=== PATIENT | male | born 1995 | race Caucasian/White ===

== ENCOUNTER → 2021-06-12 13:08 | Outpatient (BNVA) | payer OTHER, BC, SELFPAY | PROVIDERS: Referring Provider Family Medicine; Visit Provider Specialist | DX: G56.02 Carpal tunnel syndrome, left upper limb (principal) | CPT/HCPCS: 73110 ==

== ENCOUNTER → 2021-06-19 09:33 | Outpatient (BNVA) | payer OTHER, BC, SELFPAY | PROVIDERS: Visit Provider Specialist | DX: Z01.818 Encounter for other preprocedural examination (principal); Z20.822 Contact with and (suspected) exposure to COVID-19 | CPT/HCPCS: 87635 ==

== ENCOUNTER → 2021-06-23 15:28 | Outpatient (BNVA) | payer OTHER, BC, SELFPAY | PROVIDERS: Visit Provider Specialist | DX: Z01.812 Encounter for preprocedural laboratory examination (principal); Z20.822 Contact with and (suspected) exposure to COVID-19 | CPT/HCPCS: 87635 ==

== ENCOUNTER 2021-06-27 05:46 | Day surgery (SDC) | payer OTHER, BC, SELFPAY ==
[2021-06-26 12:13] VITALS: BMI 32.1
[2021-06-27 06:03] VITALS: BP 142/80; PULSE 61; RESP 17; TEMP 36.3; O2SAT 97
[2021-06-27] MEDS: CELEcoxib 200 mg Capsule 400 MG PO (06:26)
[2021-06-27] MEDS: sodium chloride 0.9% 1,000 ML 30 ML IV (06:26)
[2021-06-27] MEDS: acetaminophen 1,000 MG/100 ML PIGGYBACK 400 MG IV (06:26)
--- NOTE | 2021-06-27 06:34 | ANES.PREANE2 ---
Pre-Anesthetic Assessment Pre-Anesthetic Assessment: Height/Weight: Height 1.8 m Weight 104.326 kg Temp Pulse Resp BP Pulse Ox 97.3 F L 61 17 142/80 97 06/27/21 06:03 06/27/21 06:03 06/27/21 06:03 06/27/21 06:03 06/27/21 06:03 Preop Diagnosis: Left carpal tunnel syndrome Proposed Procedure: Operation Date: 06/27/21 07:10 Proposed Procedures p Carpal Tunnel Release 28913 G56.00(Left) - Halina Ngo MD Familial anesthetic complications: None (no personal history of anesthesia) Was Beta Zoran taken within 24 hours: N/A Was Clonidine taken within 24 hours: N/A Last intake: Intake Last Liquid Date 06/26/21 Last Liquid Time 23:30 Last Solid Date 06/26/21 Last Solid Time 18:00 Social: Social History: No alcohol and No tobacco Exam: Pre-Anes Outpt Exam: alert, oriented x 3, clear to auscultation bilaterally and regular rate & rhythm Airway: Cervical ROM: WNL MP: 3 Dentition: Full Anesthetic Plan: ASA status: 1 Anesthesia: MAC and Regional (specify below) (Kan block) Risk of > 500 ml blood loss (7ml/kg in children): No Meds/Allergies Current Medications: Current Medications Generic Name Dose Route Start Last Admin Trade Name Freq PRN Reason Stop Dose Admin Sodium Chloride 1,000 mls @ 30 ml s/hr 06/27/21 06:00 06/27/21 06:26 Sodium Chloride 0.9% IV 06/28/21 05:59 30 mls/hr .Q24H SARATH Administration PFSH Anesthesia PFSH: Social History Smoking and tobacco status: never smoked Data Anesthesia Cardiac Studies: No Data to Display
--- NOTE | 2021-06-27 06:56 | P.HPUD_ITS ---
Surgery/Procedure H&P Update DATE OF PROCEDURE: June 27, 2021 DATE H&P PERFORMED: 06/12/21 H&P UPDATE INFORMATION: I have reviewed H&P completed within last 30 days, I have examined patient prior to procedure, No changes to prior documentation and H&P is in [facility] – [place] EMR on date indicated PREOP DIAGNOSIS: Left carpal tunnel syndrome PLANNED PROCEDURE: Operation Date: 06/27/21 07:10 Proposed Procedures p Carpal Tunnel Release 27246 G56.00(Left) - Halina Ngo MD Related Problem List Diagnoses (1) Severe carpal tunnel syndrome of left wrist:
[2021-06-27 08:11] VITALS: BP 117/65; PULSE 60; RESP 17; TEMP 36.4; O2SAT 95
[2021-06-27 08:15] VITALS: BP 114/73; PULSE 58; RESP 20; O2SAT 95
--- NOTE | 2021-06-27 08:21 | PM.OP ---
Operative Report Date of procedure: June 27, 2021 Pre-op Diagnosis: Left carpal tunnel syndrome Post-op diagnosis: same Post-op Findings: Severe compression across the carpal canal Procedure Done: Left carpal tunnel release Implants: None Pathology: none sent Surgeon: Halina Ngo Impress Associate: None Anesthesia: MAC (With Kan block) Estimated blood loss (mL): 2 Tourniquet time (min): 41 Tourniquet time: At 250 mmHg IV fluids (mL): 200 Urine output (mL): 0 Urine output: No Rai Complications: None Findings: Compression across the carpal canal Condition: stable Disposition: PACU (Then discharged to home) Brief History: This 25-year-old gentleman presented after evaluation and discussion, he wished to proceed with carpal tunnel release. Risks and complications were discussed with the patient. He was consented for the surgical procedure. Consents were signed. Procedure: The patient was brought to the operating theater. The patient had a Kan block with MAC. The tourniquet was elevated to 250 mmHg for a total tourniquet time of 41 minutes. The patient was also given Ancef 2 g preoperatively. The arm was then prepped and draped with DuraPrep in usual fashion with the arm draped free. A surgical pause was performed. At the time, the surgical pause, we confirmed the site and side of surgery. We also confirmed the patient's identity, appropriate and timely administration of preoperative antibiotics and preoperative surgical markings. An incision was then made along the thenar crease. The incision crossed the wrist joint in a curvilinear fashion. Dissection continued through skin and soft tissues using a scalpel. The palmaris longus was identified along with the transverse carpal ligament. Each of these was released carefully to avoid injury to the median nerve. We were able to dissect gently into the carpal canal which was noted to be quite tight with significant compression across the median nerve. The canal was subsequently palpated to assure there was no bony encroachment upon the canal. There was a quite thickened fibrous tissue within the canal, and this was opened longitudinally as well. The canal was then palpated distally and proximally to assure that my small finger was passed easily without impingement. Finding this to be so, attention was directed to closure. The wound was irrigated with ropivacaine plain. It was then closed with 3-0 nylon in an interrupted mattress fashion. Sterile dressing was then placed consisting of Dermabond, Steri-Strips, OpSite, fluffed fluffs, sterile soft roll, a volar splint, and an [place] wrap. The tourniquet was released after 41 minutes. There were no complications. There were no specimens. The procedure was well tolerated. Plan is the patient will be discharged home. Associated Problem List Diagnoses (1) Carpal tunnel syndrome, left:
[2021-06-27 08:26] VITALS: BP 118/79; PULSE 71; RESP 18; TEMP 36.4; O2SAT 97
[2021-06-27 08:45] VITALS: BP 125/81; PULSE 68; RESP 18; TEMP 36.4; O2SAT 98
== END 2021-06-27 08:50 | disposition home or self-care (01) ==
PROVIDERS: PCP Internal Medicine Cardiovascular Disease; Visit Provider Specialist
PROC: (CPT 64721; principal; 2021-06-27 07:00)
DX: G56.02 Carpal tunnel syndrome, left upper limb (principal)
CPT/HCPCS: 64721; J0690; J2250; J3010; J3490; J7030

== ENCOUNTER 2021-07-10 10:15 | Outpatient (CLI) | payer OTHER, BC, SELFPAY | END 2021-07-10 10:16 | disposition home or self-care (01) | LOC: SPT 10:16 | PROVIDERS: PCP Internal Medicine Cardiovascular Disease; Visit Provider Specialist | DX: Z46.89 Encounter for fitting and adjustment of other specified devices (principal); G56.02 Carpal tunnel syndrome, left upper limb; Z98.890 Other specified postprocedural states | CPT/HCPCS: L3908 ==

== ENCOUNTER 2024-05-19 13:34 | Emergency (ER) | payer BC, SELFPAY ==
[2024-05-19 13:49] VITALS: BP 152/71; PULSE 97; RESP 16; TEMP 36.9; O2SAT 95; BMI 36.0
--- NOTE | 2024-05-19 14:45 | W.ED.COVID ---
HPI - COVID General: Chief Complaint: Nausea/Vomiting/Diarrhea Stated Complaint: N/V, headache Time Seen by Provider: 05/19/24 13:36 Source: patient and family Mode of arrival: ambulatory Limitations: no limitations Triage information: No fever, cough or shortness of breath. Exposure to COVID + person last 14 days History of Present Illness: Patient is a 28-year-old male who presents to ED today along with his significant other and [id number] child all 3 of which are being seen for similar symptoms. Patient states approximately 4 days ago he began having documented fevers, chills, body aches, nasal congestion, severe headache, and vomiting. He states his significant other began feeling similarly the following day. He states they were recently around her father who was sick with fevers. Patient is not having any abdominal pain or diarrhea. No neck pain or stiffness. No rash. No visual changes. Patient arrives with stable vital signs. MD complaint: has COVID symptoms Prior covid testing: no COVID 19 common symptoms: positive fever(s), chills, body aches, headache(s), throat pain, nasal congestion, nausea and vomiting; negative non-productive cough, productive cough, dyspnea, fatigue or diarrhea COVID 19 other sytmptoms: negative chest pain or dizziness Onset (ago): day(s) Severity: moderate COVID Results: SARS-CoV-2 Antigen (Rapid) positive (Negative) H 05/19/24 15:12 SARS-CoV-2 RNA (RT-PCR) Not detected (NOT DETECTED) 06/23/21 15:28 Nasal/Oral Coronavirus 2019 PCR Not detected 06/19/21 09:33 Related Data Previous Rx's Medication Instructions Recorded ondansetron 4 mg disintegrating 4 mg PO Q8H PRN nausea and 05/19/24 tablet vomiting #14 tabs Allergies Allergy/AdvReac Type Severity Reaction Status Date / Time sulfamethoxazole Allergy Unknown Verified 05/19/24 13:54 [From Bactrim] trimethoprim [From Bactrim] Allergy Unknown Verified 05/19/24 13:54 Review of Systems Const: Reports: fever(s), chills and body aches; Denies: fatigue or malaise Eyes: Denies: change in vision, blurry vision, photophobia, eye discomfort or eye discharge ENMT: Reports: throat pain and nasal congestion; Denies: nasal discharge or sinus pain Card: Denies: chest pain Resp: Denies: dyspnea, productive cough or non-productive cough GI: Reports: nausea and vomiting; Denies: abdominal pain, diarrhea or change in bowel habits Musc: Reports: other (body aches); Denies: neck pain, back pain, extremity pain or joint pain Skin/Breast: Denies: rash Neuro: Reports: headache(s); Denies: numbness in extremities, weakness in extremities, sensory changes, dizziness or behavioral changes All/Imm: Denies: facial swelling or seasonal rhinorrhea PFSH ED PFSH: Social History Smoking and tobacco/nicotine status: never used tobacco/nicotine Physical Exam Const: COMMON NORMALS: no acute distress, average body habitus, patient oriented x3, no limitations, alert and well nourished GENERAL APPEARANCE: cooperative ORIENTATION/CONSCIOUSNESS: Yes awake, Yes oriented to person, Yes oriented to place and Yes oriented to time HENMT: COMMON NORMALS: normocephalic, atraumatic, hearing grossly normal bilaterally, external ears normal, EAC's normal, TM's normal bilaterally, Normal external nose present, Normal nasal mucous membranes and turbinates present, moist oral mucous membranes and oropharynx normal HEAD & SCALP: normal to inspection, normocephalic and atraumatic FACE & SINUS: normal facial exam and sinus tenderness NOSE: Normal external nose present and Normal nasal mucous membranes and turbinates present EXTERNAL EAR: Yes external ears normal EXTERNAL AUDITORY CANAL: EAC's normal TYMPANIC MEMBRANE: TM's normal bilaterally THROAT: posterior oropharynx normal, tonsils normal and uvula midline Eye: COMMON NORMALS: Equal, round and reactive pupils present, EOMs intact bilaterally and conjunctivae normal CONJUNCTIVA: Yes conjunctivae normal PUPIL: Yes Equal, round and reactive pupils present Neck/C-Spine: COMMON NORMALS: no lymphadenopathy Resp: COMMON NORMALS: normal respiratory effort and clear to auscultation bilaterally AUSCULTATION: clear to auscultation bilaterally Cardio: COMMON NORMALS: regular rate and regular rhythm RATE: regular rate RHYTHM: regular rhythm GI: COMMON NORMALS: Normal to inspection, nondistended, normoactive bowel sounds present, Soft to palpation and non-tender PALPATION: Yes Soft to palpation Extremity: GENERAL: Yes normal exam except as noted Neuro: MARY COMA SCALE: document GCS findings [place] coma scale eye opening: Spontaneous Mary coma scale verbal response: Orientated [place] coma scale motor response: Obey commands Mary coma scale total score: 15 COMMON NORMALS: patient oriented x3, CN's II-XII intact bilaterally, moves all extremities, no focal motor deficits, no sensory deficits noted and gait normal SENSORIUM/ORIENTATION: Yes alert, Yes oriented to person, Yes oriented to place and Yes oriented to time Skin: COMMON NORMALS: no rashes or lesions noted GENERAL SKIN EXAM: no rashes or lesions noted Course Vital Signs: Vital signs: Vital Signs Temperature 98.4 F 05/19/24 13:49 Pulse Rate 97 05/19/24 13:49 Respiratory Rate 16 05/19/24 13:49 Blood Pressure 152/71 05/19/24 13:49 Pulse Oximetry 95 05/19/24 13:49 Oxygen Delivery Me thod Room Air 05/19/24 13:49 MDM - COVID Medical Decision Making Patient and his son are both positive for COVID. Symptomatic treatment discussed. Will prescribe him Zofran to help with his nausea. Return to ED precautions given. Differential Diagnosis Likely COVID 19 Lab Data Laboratory Results SARS-CoV-2 Ag (Rapid) positive (Negative) H 05/19/24 15:12 SARS-CoV-2 Antigen (Rapid) positive (Negative) H 05/19/24 15:12 SARS-CoV-2 RNA (RT-PCR) Not detected (NOT DETECTED) 06/23/21 15:28 Nasal/Oral Coronavirus 2019 PCR Not detected 06/19/21 09:33 No radiology studies performed this visit Discharge Plan Discharge Patient Disposition: Home Clinical Impression: COVID Condition: Stable Prescriptions: New ondansetron 4 mg tablet,disintegrating 4 mg PO Q8H PRN (Reason: nausea and vomiting) Qty: 14 0RF Discharge Orders: Discharge ED (Routine); Ordered 05/19/24 Ordered By: Angela Gregg Patient Instructions: COVID-19 (Coronavirus Disease 2019) (ED), Social Distancing Guidelines for COVID-19 (ED) Stand Alone Forms: Work/School Release Coding Level of Care Code ED 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
[2024-05-19 15:49] LABS: SARS Covid-2 Antigen positive (Negative)
[2024-05-19 17:00] VITALS: BP 150/69; PULSE 71; O2SAT 99
== END 2024-05-19 17:01 | disposition home or self-care (01) ==
PROVIDERS: Emergency Provider Physician Assistant
DX: U07.1 COVID-19 (principal)
CPT/HCPCS: 87426; 99283